=== PATIENT | female | born 1950 | race Caucasian/White ===

== ENCOUNTER 2020-02-13 15:26 | Outpatient (CLI) | payer MEDICARE, BC | END 2020-02-13 15:27 | disposition home or self-care (01) | LOC: COV 15:26 | PROVIDERS: ATTEND Family Medicine | DX: R05 Cough (principal); R07.0 Pain in throat; R09.81 Nasal congestion; J34.89 Other specified disorders of nose and nasal sinuses; Z20.828 Contact with and (suspected) exposure to other viral communicable diseases ==

== ENCOUNTER 2022-10-31 11:50 | Emergency (ER) | payer MEDICARE, BC ==
[2022-10-31 12:03] VITALS: O2SAT 98
[2022-10-31] MEDS ORDERED: diltiaZEM INJ 5 MG/ML VIAL IVP STA (12:20)
[2022-10-31] MEDS ORDERED: PROCAINAMIDE 1,000 MG in SODIUM CHLORIDE 0.9% 240 ML IV STA (12:20)
--- NOTE | 2022-10-31 12:22 | ED Physician Documentation ---
PD HPI DYSPNEA - Stated complaint Stated Complaint: SOA - Chief complaint Chief Complaint: Resp - History obtained from History obtained from: Patient - Additional information Additional information: This is a very healthy 72-year-old woman without history of heart or lung problems who presents for the evaluation of shortness of breath. She felt fine yesterday. Today during her walk she felt very winded which resolved with rest. There is no associated chest pain, cough, fever, pedal edema, calf pain. She has no history of arrhythmias. PD PAST MEDICAL HISTORY - Allergies Allergies/Adverse Reactions: Allergies Allergy/AdvReac Type Severity Reaction Status Date / Time No Known Drug Allergies Allergy Verified 10/31/22 12:00 PD ED PE NORMAL - Vitals Vital signs reviewed: Yes - General General: Alert and oriented X 3, No acute distress - HEENT HEENT: PERRL, EOMI - Neck Neck: Supple, no meningeal sign, No bony TTP - Cardiac Cardiac: Other (Rapid and regular without murmur) - Respiratory Respiratory: No respiratory distress, Clear bilaterally - Abdomen Abdomen: Non tender - Extremities Extremities: No edema, No calf tenderness / cord - Neuro Neuro: Alert and oriented X 3, Normal speech Results - Vitals Vitals: Vital Signs - 24 hr 10/31/22 11:53 Temperature 36.4 C L Heart Rate 135 H Respiratory 16 Rate Blood Pressure 129/97 H O2 Saturation 98 Oxygen O2 Source Room air - EKG (time done) 1158 EKG releavant findings:: EKG personally interpreted by author of this note. Relevant findings are: Rate: Rate (enter#) (134) Rhythm: Atrial flutter Intervals: Normal MA Ischemia: Non specific changes. No: ST elevation c/w ischemia 1242 EKG releavant findings:: EKG personally interpreted by author of this note. Relevant findings are: Rate: Rate (enter#) (118) Rhythm: Atrial fibrillation [place]: Normal QRS: Normal Ischemia: Non specific changes 1251 EKG releavant findings:: EKG personally interpreted by author of this note. Relevant findings are: Rate: Rate (enter#) (52) Rhythm: Atrial fibrillation [place]: Normal Ischemia: Non specific changes - Labs Labs: Laboratory Tests 10/31/22 10/31/22 12:27 12:27 WBC 9.8 RBC 4.86 Hgb 14.2 Hct 43.3 MCV 89.1 MCH 29.2 MCHC 32.8 RDW 12.4 Plt Count 342 MPV 9.9 Neut # (Auto) 7.9 H Lymph # (Auto) 1.0 L [place] # (Auto) 0.8 Eos # (Auto) 0.1 Baso # (Auto) 0.0 Absolute Nucleated RBC 0.00 Nucleated RBC % 0.0 Sodium 138 Potassium 4.4 Chloride 106 Carbon Dioxide 26 Anion Gap 6.0 BUN 19 Creatinine 1.2 Estimated GFR (MDRD) 44 L Glucose 101 Calcium 10.2 Magnesium 1.9 TSH 2.86 PD Medical Decision Making - ED course Complexity details: reviewed results (You were seen today for new onset atrial flutter/fibrillation. After the administration of diltiazem and a procainamide drip you converted to normal sinus rhythm. CBC, chemistry panel, and thyroid check were unremarkable.) ED course: 72-year-old woman presents with new onset atrial flutter. I did have some concern for electrical alternans on her EKG and a bedside limited echo was done without pericardial effusion. Per her history she is only been in it for a few hours, she felt fine yesterday. We will plan on rate control initially with 20 mg of IV diltiazem and then started procainamide drip. After administration of 20 mg of IV diltiazem heart rate was down to 118 and now in A-fib, see EKG #2. Procainamide drip was started and RN noted that she stopped it to me around 1255, now was in a regular rhythm but without clear P waves, computer thinking A-fib but does seem very regular for that; See EKG #3. Subsequently on the monitor was in normal sinus rhythm with occasional PACs. She was asymptomatic and was ambulated in the sanders without recurrent dyspnea. She was observed for time, was modestly bradycardic related to the diltiazem previously administered. Rest for the rest of the day was advised and advised to start baby aspirin. Departure - Departure Disposition: 01 Home, Self Care Clinical Impression: Atrial flutter Qualifiers: Atrial flutter type: typical Qualified Code(s): I48.3 - Typical atrial flutter Condition: Good Record reviewed to determine appropriate education?: Yes Instructions: Atrial Fibrillation Dc Comments: You were seen today for new onset atrial flutter/fibrillation. After the administration of diltiazem and a procainamide drip you converted to normal sinus rhythm. CBC, chemistry panel, and thyroid check were unremarkable. I would like you to rest for the rest of the day, you can gradually return to normal activity over the next couple of days after that if you are feeling okay. If you develop any new or worsening symptoms please return for immediately for reevaluation. Until follow-up you should take a baby aspirin a day. Follow-up with your primary care physician, I suspect they will refer you to a mold dumper and obtain echocardiogram and possibly a stress test.
[2022-10-31 12:34] LABS: BASOPHILS % (AUTO) 0.4 %; EOSINOPHILS # (AUTO) 0.1 10^3/uL (0.0-0.7); EOSINOPHILS % (AUTO) 0.5 %; HCT - HEMATOCRIT 43.3 % (37.0-47.0); HGB - HEMOGLOBIN 14.2 g/dL (12.0-16.0); LYMPHOCYTES % (AUTO) 10.4 %; MEAN CORPUSCULAR HEMOGLOBIN 29.2 pg (27.0-31.0); MEAN CORPUSCULAR HGB CONC 32.8 g/dL (32.0-36.0); MEAN CORPUSCULAR VOLUME 89.1 fL (81.0-99.0); MEAN PLATELET VOLUME 9.9 fL (7.9-10.8); MONOCYTES # (AUTO) 0.8 10^3/uL (0.0-1.0); MONOCYTES % (AUTO) 7.9 %; NEUTROPHILS # (AUTO) 7.9 10^3/uL (1.5-6.6); NEUTROPHILS % (AUTO) 80.6 %; PLT - PLATELET COUNT 342 10^3/uL (130-450); RED BLOOD COUNT 4.86 10^6/uL (4.20-5.40); RED CELL DISTRIBUTION WIDTH 12.4 % (12.0-15.0); WHITE BLOOD COUNT 9.8 x10^3/uL (4.8-10.8)
[2022-10-31 12:48] LABS: CALCIUM 10.2 mg/dL (8.5-10.3); CREATININE 1.2 mg/dL (0.6-1.3); MAGNESIUM 1.9 mg/dL (1.7-2.3); POTASSIUM 4.4 mmol/L (3.5-4.5)
--- NOTE | 2022-10-31 12:48 | XRAY Report ---
PROCEDURE: Chest 1 View X-Ray INDICATIONS: dyspnea TECHNIQUE: One view of the chest was acquired. COMPARISON: None. FINDINGS: Surgical changes and devices: None. Lungs and pleura: No pleural effusions or pneumothorax. Lungs are clear. Mediastinum: Mediastinal contours appear normal. Heart size is normal. Bones and chest wall: No suspicious bony lesions. Overlying soft tissues appear unremarkable. IMPRESSION: No acute cardiopulmonary process. Reviewed by: Pk Barth MD on 10/31/2022 12:47 PM PDT Approved by: Pk Barth MD on 10/31/2022 12:47 PM PDT Station ID: [id number]
[2022-10-31 13:03] LABS: THYROID STIMULATING HORMONE 2.86 uIU/mL (0.34-5.60)
[2022-10-31 14:03] VITALS: BP 119/86
== END 2022-10-31 13:59 | disposition home or self-care (01) ==
LOC: ED 11:50
DX: I48.3 Typical atrial flutter (principal)
CPT/HCPCS: 36415; 71045; 80048; 83735; 84443; 85025; 93005; 96374; 96375; 99284; J2690